=== PATIENT | male | born 1985 | race Caucasian/White ===

== ENCOUNTER 2020-02-05 19:24 | Emergency (ER) | payer MEDICAID, OTHER ==
[~2020-02-05] VITALS: Ht 167.6 cm; Wt 95.3 kg
[2020-02-05 19:41] VITALS: BP 126/87
[2020-02-05] MEDS ORDERED: KETOROLAC 60 MG/2 ML ONE (20:03)
[2020-02-05] MEDS ORDERED: HYDROcodone/APAP 10/325 MG TABLET ONE (20:03)
--- NOTE | 2020-02-05 20:11 | NUR ---
pt to ed w/ tooth ache/infection upper right side mouth. recent infection 2 wks ago, seen at [facility], does not know what abx was taking. did not f/u w/ dentist. given pain meds. ally to recheck pt. given dental clinic list. as
[2020-02-05] MEDS ORDERED: KETOROLAC 30 MG/1 ML IM ONE (20:30)
[2020-02-05] MEDS ORDERED: HYDROcodone/APAP 5/325 TABLET PO ONE (20:30)
== END 2020-02-05 20:34 | disposition home or self-care (01) ==
LOC: ED 20:29
DX: K04.7 Periapical abscess without sinus (principal)
CPT/HCPCS: 96372; 99283; J1885